=== PATIENT | female | born 1980 | race Native Hawaiian/Other Pacific Islander ===

== ENCOUNTER 2019-04-26 12:48 | Outpatient (CLI) | payer OTHER | END 2019-04-26 23:56 | disposition home or self-care (01) | LOC: CT 12:48 | DX: M79.641 Pain in right hand (principal); S62.011A Displaced fracture of distal pole of navicular [scaphoid] bone of right wrist, initial encounter for closed fracture ==

== ENCOUNTER 2021-05-28 13:36 | Emergency (ER) | payer OTHER ==
[~2021-05-28] VITALS: Ht 160 cm; Wt 61.2 kg
[2021-05-28 13:40] VITALS: TEMP 98.3
[2021-05-28 15:12] VITALS: BP 115/69
== END 2021-05-28 15:12 | disposition home or self-care (01) ==
LOC: ED 13:36
DX: J32.8 Other chronic sinusitis (principal); J06.9 Acute upper respiratory infection, unspecified; F17.210 Nicotine dependence, cigarettes, uncomplicated; Z20.822 Contact with and (suspected) exposure to COVID-19
CPT/HCPCS: 87635; 87651; 99283; U0003